=== PATIENT | male | born 1970 | race Hispanic/Latino ===

== ENCOUNTER 2022-06-29 10:51 | Emergency (ER) | END 2022-06-29 11:06 | LOC: ERS 10:51 | DX: Z02.89 Encounter for other administrative examinations (principal) | CPT/HCPCS: 99282 ==

== ENCOUNTER 2022-06-30 09:43 | Inpatient (IN) | payer OTHER, SELFPAY ==
[2022-06-30 11:56] LABS: #Lymphocytes 1.4 thou/uL (1.20-3.40); #Monocytes 0.7 thou/uL (0.11-0.59); #Neutrophils 7.4 thou/uL (1.40-6.50); %Basophils 0.2 % (0.0-1.0); %Eosinophils 0.5 % (0.0-10.0); %Lymphocytes 14.4 % (21.0-51.0); %Monocytes 7.2 % (0.0-10.0); %Neutrophils 77.9 % (42.0-75.0); Hemoglobin 16.3 g/dL (14.0-18.0); Mean Corpuscular HGB CONC 35.2 g/dL (32.0-36.0); Mean Corpuscular Hemoglobin 30.8 pg (27.0-31.0); Mean Corpuscular Volume 87.5 fl (78.0-98.0); Mean Platelet Volume 7.6 fL (7.4-10.4); Platelet Count 241 10x3/uL (130-400); RBC Distribution Width 11.9 % (11.5-14.5); Red Blood Cell (RBC) Count 5.29 mill/uL (4.70-6.10); White Blood Cell (WBC) Count 9.4 10x3/uL (4.8-10.8)
[2022-06-30 13:32] LABS: ALT (SGPT) 29 U/L (8-55); AST (SGOT) 25 U/L (5-34); Albumin 4.7 g/dL (3.5-5.0); Alcohol Less than 10 mg/dL (Less than 10); Alkaline Phosphatase 97 U/L (40-110); Anion Gap 16 mmol/L (10-20); BUN (Urea Nitrogen) 19 mg/dL (8.4-25.7); Bilirubin, Total 1.7 mg/dL (0.2-1.2); CK (CPK) 390 U/L (30-200); Calc. Creatinine Clearance 0 mL/min (70-130); Calcium 10.1 mg/dL (7.8-10.44); Carbon Dioxide 25 mmol/L (22-29); Chloride 102 mmol/L (98-107); Estimated GFR 95; Globulin 3.7 g/dL (2.4-3.5); Glucose 102 mg/dL (70-105); Protein, Total 8.4 g/dL (6.0-8.3); Salicylate Less than 8.0 mg/dL (15.0-30.0); Sodium 139 mmol/L (136-145)
[2022-06-30] MEDS ORDERED: hydrALAZINE 20 MG/ML VIAL SLOW IVP PRN ×2 (15:01→18:49)
[2022-06-30] MEDS ORDERED: Ondansetron PF 4 MG/2 ML Vial IVP PRN (15:01)
[2022-06-30] MEDS ORDERED: Ondansetron ODT 4 MG TAB PO PRN (15:01)
[2022-06-30 16:07] LABS: Troponin I 0.013 ng/mL (< 0.028)
[2022-06-30] MEDS ORDERED: hydrALAZINE 20 MG/ML VIAL ONE (16:20)
[2022-06-30 18:51] VITALS: BMI 32.8
[2022-06-30] MEDS: Labetalol HCl 100 MG/20 ML VIAL SLOW IVP PRN (18:56)
[2022-06-30 19:32] LABS: Troponin I Less than 0.010 ng/mL (< 0.028)
[2022-06-30] MEDS: Atorvastatin Calcium 40 MG TAB PO SCH (21:00)
[2022-06-30] MEDS: Famotidine 20 MG TAB PO SCH (21:00)
[2022-07-01 05:35] LABS: #Eosinphils 0.1 thou/uL (0.0-0.7); #Monocytes 0.6 thou/uL (0.11-0.59); #Neutrophils 7.2 thou/uL (1.40-6.50); %Basophils 0.1 % (0.0-1.0); %Eosinophils 0.6 % (0.0-10.0); %Lymphocytes 11.6 % (21.0-51.0); %Monocytes 6.7 % (0.0-10.0); Hemoglobin 15.8 g/dL (14.0-18.0); Mean Corpuscular HGB CONC 34.3 g/dL (32.0-36.0); Mean Corpuscular Hemoglobin 30.3 pg (27.0-31.0); Mean Corpuscular Volume 88.4 fl (78.0-98.0); Mean Platelet Volume 7.6 fL (7.4-10.4); Platelet Count 238 10x3/uL (130-400); RBC Distribution Width 11.8 % (11.5-14.5); Red Blood Cell (RBC) Count 5.22 mill/uL (4.70-6.10); White Blood Cell (WBC) Count 8.9 10x3/uL (4.8-10.8)
[2022-07-01 05:57] LABS: Anion Gap 15 mmol/L (10-20); BUN (Urea Nitrogen) 18 mg/dL (8.4-25.7); CK (CPK) 278 U/L (30-200); Calc. Creatinine Clearance 114 mL/min (70-130); Calcium 9.4 mg/dL (7.8-10.44); Carbon Dioxide 24 mmol/L (22-29); Cardiac Risk 4.7 (Less than 4.5); Chloride 105 mmol/L (98-107); Cholesterol 230 mg/dl (< 200 Desired); Estimated GFR 105; Glucose 110 mg/dL (70-105); HDL Cholesterol 49 mg/dL (>60 Neg Risk); LDL Cholesterol, Calculated 145 mg/dL; Potassium 3.7 mmol/L (3.5-5.1); Sodium 140 mmol/L (136-145); Triglycerides 178 mg/dL (Less than 150)
[2022-07-01] MEDS: Famotidine 20 MG TAB PO SCH ×2 (09:34→22:25)
[2022-07-01] MEDS: Aspirin 81 mg Enteric Coated Tablet PO SCH (09:35)
[2022-07-01] MEDS ORDERED: Iopamidol-370 76% 500 ML MDV (1 ML CHARGE) ONE (09:36)
[2022-07-01] MEDS: Acetaminophen 500 MG TAB PO PRN (12:49)
[2022-07-01] MEDS: Labetalol HCl 100 MG/20 ML VIAL SLOW IVP PRN ×2 (13:44→16:11)
[2022-07-01 14:10] LABS: Hemoglobin A1c 4.9 % (4.0-6.0)
[2022-07-01] MEDS ORDERED: NIFEdipine XL 30 MG TAB PO SCH (18:00)
[2022-07-01] MEDS: Atorvastatin Calcium 40 MG TAB PO SCH (22:25)
[2022-07-02] MEDS: NIFEdipine XL 30 MG TAB PO SCH (09:43)
[2022-07-02] MEDS: Famotidine 20 MG TAB PO SCH ×2 (09:44→21:52)
[2022-07-02] MEDS: Aspirin 81 mg Enteric Coated Tablet PO SCH (09:44)
[2022-07-02] MEDS: Atorvastatin Calcium 40 MG TAB PO SCH (21:52)
[2022-07-03] MEDS: NIFEdipine XL 30 MG TAB PO SCH (10:09)
[2022-07-03] MEDS: Famotidine 20 MG TAB PO SCH ×2 (10:10→20:50)
[2022-07-03] MEDS: Aspirin 81 mg Enteric Coated Tablet PO SCH (10:10)
[2022-07-03] MEDS: Atorvastatin Calcium 40 MG TAB PO SCH (20:50)
[2022-07-04] MEDS: Aspirin 81 mg Enteric Coated Tablet PO SCH (09:06)
[2022-07-04] MEDS: Famotidine 20 MG TAB PO SCH ×2 (09:08→21:22)
[2022-07-04] MEDS: NIFEdipine XL 30 MG TAB PO SCH (09:08)
[2022-07-04] MEDS: Atorvastatin Calcium 40 MG TAB PO SCH (21:22)
[2022-07-04] MEDS: Metoprolol Tartrate 25 MG TAB PO SCH (21:22)
[2022-07-05] MEDS: Labetalol HCl 100 MG/20 ML VIAL SLOW IVP PRN (00:01)
[2022-07-05] MEDS: Melatonin 3 MG TAB PO PRN (04:21)
[2022-07-05] MEDS: Acetaminophen 500 MG TAB PO PRN ×2 (04:21→21:06)
[2022-07-05] MEDS: Famotidine 20 MG TAB PO SCH ×2 (08:44→21:07)
[2022-07-05] MEDS: NIFEdipine XL 30 MG TAB PO SCH (08:44)
[2022-07-05] MEDS: Metoprolol Tartrate 25 MG TAB PO SCH ×2 (08:44→21:07)
[2022-07-05] MEDS: Aspirin 81 mg Enteric Coated Tablet PO SCH (08:45)
[2022-07-05] MEDS: Polyethylene Glycol 3350 17 GM Packet PO SCH (09:49)
[2022-07-05] MEDS: Atorvastatin Calcium 40 MG TAB PO SCH (21:07)
[2022-07-06 05:28] LABS: #Basophils 0.1 thou/uL (0.0-0.2); #Eosinphils 0.2 thou/uL (0.0-0.7); #Lymphocytes 2.1 thou/uL (1.20-3.40); #Monocytes 0.6 thou/uL (0.11-0.59); #Neutrophils 4.6 thou/uL (1.40-6.50); %Basophils 0.8 % (0.0-1.0); %Eosinophils 2.8 % (0.0-10.0); %Lymphocytes 27.4 % (21.0-51.0); %Monocytes 8.3 % (0.0-10.0); %Neutrophils 60.7 % (42.0-75.0); Hemoglobin 15.5 g/dL (14.0-18.0); Mean Corpuscular HGB CONC 33.7 g/dL (32.0-36.0); Mean Corpuscular Hemoglobin 29.4 pg (27.0-31.0); Mean Corpuscular Volume 87.3 fl (78.0-98.0); Mean Platelet Volume 7.7 fL (7.4-10.4); Platelet Count 257 10x3/uL (130-400); RBC Distribution Width 11.4 % (11.5-14.5); Red Blood Cell (RBC) Count 5.28 mill/uL (4.70-6.10); White Blood Cell (WBC) Count 7.6 10x3/uL (4.8-10.8)
[2022-07-06 05:31] LABS: Anion Gap 9 mmol/L (10-20); BUN (Urea Nitrogen) 20 mg/dL (8.4-25.7); Calc. Creatinine Clearance 127 mL/min (70-130); Calcium 9.3 mg/dL (7.8-10.44); Carbon Dioxide 28 mmol/L (22-29); Chloride 102 mmol/L (98-107); Estimated GFR 108; Glucose 99 mg/dL (70-105); Potassium 3.4 mmol/L (3.5-5.1); Sodium 136 mmol/L (136-145)
[2022-07-06] MEDS ORDERED: Electrolyte Replacement Protocol 1 EACH FS SCH (08:02)
[2022-07-06] MEDS ORDERED: Potassium Chloride 20 MEQ TAB PO SCH (08:15)
[2022-07-06] MEDS: Aspirin 81 mg Enteric Coated Tablet PO SCH (11:09)
[2022-07-06] MEDS: Senokot S 8.6-50 MG TAB PO PRN (11:09)
[2022-07-06] MEDS: Famotidine 20 MG TAB PO SCH ×2 (11:09→20:56)
[2022-07-06] MEDS: NIFEdipine XL 30 MG TAB PO SCH (11:10)
[2022-07-06] MEDS: Polyethylene Glycol 3350 17 GM Packet PO SCH (11:10)
[2022-07-06] MEDS: Metoprolol Tartrate 25 MG TAB PO SCH ×2 (11:10→20:56)
[2022-07-06] MEDS: Atorvastatin Calcium 40 MG TAB PO SCH (20:56)
[2022-07-06] MEDS: Acetaminophen 500 MG TAB PO PRN (21:06)
[2022-07-07 05:53] LABS: #Basophils 0.1 thou/uL (0.0-0.2); #Eosinphils 0.2 thou/uL (0.0-0.7); #Lymphocytes 2.2 thou/uL (1.20-3.40); #Monocytes 0.7 thou/uL (0.11-0.59); #Neutrophils 4.2 thou/uL (1.40-6.50); %Basophils 0.8 % (0.0-1.0); %Eosinophils 2.6 % (0.0-10.0); %Lymphocytes 29.7 % (21.0-51.0); %Monocytes 9.8 % (0.0-10.0); %Neutrophils 57.1 % (42.0-75.0); Hemoglobin 16.1 g/dL (14.0-18.0); Mean Corpuscular HGB CONC 33.5 g/dL (32.0-36.0); Mean Corpuscular Hemoglobin 29.4 pg (27.0-31.0); Mean Corpuscular Volume 87.8 fl (78.0-98.0); Mean Platelet Volume 7.5 fL (7.4-10.4); Platelet Count 263 10x3/uL (130-400); RBC Distribution Width 11.5 % (11.5-14.5); Red Blood Cell (RBC) Count 5.46 mill/uL (4.70-6.10); White Blood Cell (WBC) Count 7.4 10x3/uL (4.8-10.8)
[2022-07-07 06:16] LABS: Anion Gap 13 mmol/L (10-20); BUN (Urea Nitrogen) 17 mg/dL (8.4-25.7); Calc. Creatinine Clearance 128 mL/min (70-130); Calcium 9.3 mg/dL (7.8-10.44); Carbon Dioxide 26 mmol/L (22-29); Chloride 104 mmol/L (98-107); Estimated GFR 109; Glucose 87 mg/dL (70-105); Potassium 3.9 mmol/L (3.5-5.1); Sodium 139 mmol/L (136-145)
[2022-07-07] MEDS: Polyethylene Glycol 3350 17 GM Packet PO SCH (09:38)
[2022-07-07] MEDS: Metoprolol Tartrate 25 MG TAB PO SCH ×2 (09:38→21:53)
[2022-07-07] MEDS: Senokot S 8.6-50 MG TAB PO PRN (09:38)
[2022-07-07] MEDS: NIFEdipine XL 30 MG TAB PO SCH (09:38)
[2022-07-07] MEDS: Aspirin 81 mg Enteric Coated Tablet PO SCH (09:39)
[2022-07-07] MEDS: Famotidine 20 MG TAB PO SCH ×2 (09:39→20:39)
[2022-07-07] MEDS: Labetalol HCl 100 MG/20 ML VIAL SLOW IVP PRN (20:34)
[2022-07-07] MEDS: Atorvastatin Calcium 40 MG TAB PO SCH (20:39)
[2022-07-07] MEDS: Acetaminophen 500 MG TAB PO PRN (20:39)
[2022-07-08 06:11] LABS: #Eosinphils 0.2 thou/uL (0.0-0.7); #Monocytes 0.6 thou/uL (0.11-0.59); %Basophils 0.5 % (0.0-1.0); %Eosinophils 2.5 % (0.0-10.0); %Lymphocytes 29.2 % (21.0-51.0); %Monocytes 8.6 % (0.0-10.0); %Neutrophils 59.2 % (42.0-75.0); Hemoglobin 15.6 g/dL (14.0-18.0); Mean Corpuscular HGB CONC 32.7 g/dL (32.0-36.0); Mean Corpuscular Hemoglobin 28.8 pg (27.0-31.0); Mean Platelet Volume 7.5 fL (7.4-10.4); Platelet Count 298 10x3/uL (130-400); RBC Distribution Width 11.2 % (11.5-14.5); Red Blood Cell (RBC) Count 5.41 mill/uL (4.70-6.10); White Blood Cell (WBC) Count 6.7 10x3/uL (4.8-10.8)
[2022-07-08 06:32] LABS: Anion Gap 13 mmol/L (10-20); BUN (Urea Nitrogen) 15 mg/dL (8.4-25.7); Calc. Creatinine Clearance 118 mL/min (70-130); Calcium 9.6 mg/dL (7.8-10.44); Carbon Dioxide 27 mmol/L (22-29); Chloride 103 mmol/L (98-107); Estimated GFR 106; Glucose 92 mg/dL (70-105); Potassium 3.9 mmol/L (3.5-5.1); Sodium 139 mmol/L (136-145)
[2022-07-08] MEDS: NIFEdipine XL 30 MG TAB PO SCH (09:57)
[2022-07-08] MEDS: Famotidine 20 MG TAB PO SCH ×2 (09:58→21:20)
[2022-07-08] MEDS: Metoprolol Tartrate 25 MG TAB PO SCH ×2 (09:58→21:20)
[2022-07-08] MEDS: Polyethylene Glycol 3350 17 GM Packet PO SCH (09:58)
[2022-07-08] MEDS: Aspirin 81 mg Enteric Coated Tablet PO SCH (09:58)
[2022-07-08] MEDS ORDERED: Losartan 25 MG TAB PO SCH (15:00)
[2022-07-08] MEDS: Acetaminophen 500 MG TAB PO PRN (21:20)
[2022-07-08] MEDS: Melatonin 3 MG TAB PO PRN (21:20)
[2022-07-08] MEDS: Atorvastatin Calcium 40 MG TAB PO SCH (21:20)
[2022-07-09 06:26] LABS: #Eosinphils 0.2 thou/uL (0.0-0.7); #Lymphocytes 1.9 thou/uL (1.20-3.40); #Monocytes 0.6 thou/uL (0.11-0.59); #Neutrophils 3.5 thou/uL (1.40-6.50); %Basophils 0.5 % (0.0-1.0); %Eosinophils 3.1 % (0.0-10.0); %Monocytes 8.9 % (0.0-10.0); %Neutrophils 56.5 % (42.0-75.0); Mean Corpuscular HGB CONC 33.6 g/dL (32.0-36.0); Mean Corpuscular Hemoglobin 29.3 pg (27.0-31.0); Mean Corpuscular Volume 87.2 fl (78.0-98.0); Mean Platelet Volume 7.7 fL (7.4-10.4); Platelet Count 299 10x3/uL (130-400); RBC Distribution Width 11.1 % (11.5-14.5); Red Blood Cell (RBC) Count 5.46 mill/uL (4.70-6.10); White Blood Cell (WBC) Count 6.2 10x3/uL (4.8-10.8)
[2022-07-09 06:44] LABS: Anion Gap 14 mmol/L (10-20); BUN (Urea Nitrogen) 15 mg/dL (8.4-25.7); Calc. Creatinine Clearance 132 mL/min (70-130); Calcium 9.6 mg/dL (7.8-10.44); Carbon Dioxide 23 mmol/L (22-29); Chloride 104 mmol/L (98-107); Estimated GFR 110; Glucose 87 mg/dL (70-105); Potassium 3.8 mmol/L (3.5-5.1); Sodium 137 mmol/L (136-145)
[2022-07-09] MEDS: NIFEdipine XL 30 MG TAB PO SCH (10:51)
[2022-07-09] MEDS: Metoprolol Tartrate 25 MG TAB PO SCH ×2 (10:51→21:35)
[2022-07-09] MEDS: Aspirin 81 mg Enteric Coated Tablet PO SCH (10:51)
[2022-07-09] MEDS: Polyethylene Glycol 3350 17 GM Packet PO SCH (10:51)
[2022-07-09] MEDS: Famotidine 20 MG TAB PO SCH ×2 (10:52→21:35)
[2022-07-09] MEDS: Losartan 25 MG TAB PO SCH (10:52)
[2022-07-09] MEDS: Melatonin 3 MG TAB PO PRN (21:35)
[2022-07-09] MEDS: Atorvastatin Calcium 40 MG TAB PO SCH (21:35)
[2022-07-10 05:27] LABS: #Eosinphils 0.1 thou/uL (0.0-0.7); #Lymphocytes 1.8 thou/uL (1.20-3.40); #Monocytes 0.5 thou/uL (0.11-0.59); #Neutrophils 4.1 thou/uL (1.40-6.50); %Basophils 0.5 % (0.0-1.0); %Lymphocytes 27.5 % (21.0-51.0); %Monocytes 7.8 % (0.0-10.0); %Neutrophils 62.2 % (42.0-75.0); Hemoglobin 15.9 g/dL (14.0-18.0); Mean Corpuscular HGB CONC 32.3 g/dL (32.0-36.0); Mean Corpuscular Hemoglobin 28.2 pg (27.0-31.0); Mean Corpuscular Volume 87.4 fl (78.0-98.0); Mean Platelet Volume 7.8 fL (7.4-10.4); Platelet Count 325 10x3/uL (130-400); RBC Distribution Width 11.1 % (11.5-14.5); Red Blood Cell (RBC) Count 5.65 mill/uL (4.70-6.10); White Blood Cell (WBC) Count 6.6 10x3/uL (4.8-10.8)
[2022-07-10 05:47] LABS: Anion Gap 13 mmol/L (10-20); BUN (Urea Nitrogen) 18 mg/dL (8.4-25.7); Calc. Creatinine Clearance 111 mL/min (70-130); Calcium 9.5 mg/dL (7.8-10.44); Carbon Dioxide 27 mmol/L (22-29); Chloride 102 mmol/L (98-107); Estimated GFR 104; Glucose 88 mg/dL (70-105); Potassium 3.5 mmol/L (3.5-5.1); Sodium 138 mmol/L (136-145)
[2022-07-10] MEDS: NIFEdipine XL 30 MG TAB PO SCH (08:54)
[2022-07-10] MEDS: Losartan 25 MG TAB PO SCH (08:54)
[2022-07-10] MEDS: Famotidine 20 MG TAB PO SCH ×2 (08:54→20:44)
[2022-07-10] MEDS: Metoprolol Tartrate 25 MG TAB PO SCH ×2 (08:54→20:44)
[2022-07-10] MEDS: Aspirin 81 mg Enteric Coated Tablet PO SCH (08:54)
[2022-07-10] MEDS: Polyethylene Glycol 3350 17 GM Packet PO SCH (08:54)
[2022-07-10] MEDS: Atorvastatin Calcium 40 MG TAB PO SCH (20:44)
[2022-07-10] MEDS: Melatonin 3 MG TAB PO PRN (20:44)
[2022-07-10] MEDS: Acetaminophen 500 MG TAB PO PRN (20:46)
[2022-07-11] MEDS: Acetaminophen 500 MG TAB PO PRN (08:35)
[2022-07-11] MEDS: Metoprolol Tartrate 25 MG TAB PO SCH ×2 (08:36→21:37)
[2022-07-11] MEDS: Famotidine 20 MG TAB PO SCH ×2 (08:36→21:36)
[2022-07-11] MEDS: NIFEdipine XL 30 MG TAB PO SCH (08:36)
[2022-07-11] MEDS: Losartan 25 MG TAB PO SCH (08:36)
[2022-07-11] MEDS: Aspirin 81 mg Enteric Coated Tablet PO SCH (08:36)
[2022-07-11] MEDS: Polyethylene Glycol 3350 17 GM Packet PO SCH (08:37)
[2022-07-11] MEDS: Atorvastatin Calcium 40 MG TAB PO SCH (21:36)
[2022-07-12] MEDS: NIFEdipine XL 30 MG TAB PO SCH (09:43)
[2022-07-12] MEDS: Famotidine 20 MG TAB PO SCH ×2 (09:44→20:18)
[2022-07-12] MEDS: Polyethylene Glycol 3350 17 GM Packet PO SCH (09:44)
[2022-07-12] MEDS: Aspirin 81 mg Enteric Coated Tablet PO SCH (09:44)
[2022-07-12] MEDS: Metoprolol Tartrate 25 MG TAB PO SCH ×2 (09:44→20:18)
[2022-07-12] MEDS: Losartan 25 MG TAB PO SCH (09:44)
[2022-07-12] MEDS: Atorvastatin Calcium 40 MG TAB PO SCH (20:19)
[2022-07-13 08:04] LABS: #Eosinphils 0.1 thou/uL (0.0-0.7); #Lymphocytes 1.9 thou/uL (1.20-3.40); #Monocytes 0.6 thou/uL (0.11-0.59); #Neutrophils 5.3 thou/uL (1.40-6.50); %Basophils 0.4 % (0.0-1.0); %Eosinophils 1.8 % (0.0-10.0); %Lymphocytes 23.7 % (21.0-51.0); %Monocytes 7.5 % (0.0-10.0); %Neutrophils 66.7 % (42.0-75.0); Hemoglobin 15.4 g/dL (14.0-18.0); Mean Corpuscular HGB CONC 33.7 g/dL (32.0-36.0); Mean Corpuscular Hemoglobin 29.3 pg (27.0-31.0); Mean Corpuscular Volume 87.1 fl (78.0-98.0); Mean Platelet Volume 9.3 fL (7.4-10.4); Platelet Count 219 10x3/uL (130-400); RBC Distribution Width 11.5 % (11.5-14.5); Red Blood Cell (RBC) Count 5.23 mill/uL (4.70-6.10)
[2022-07-13] MEDS: NIFEdipine XL 30 MG TAB PO SCH (08:46)
[2022-07-13] MEDS: Polyethylene Glycol 3350 17 GM Packet PO SCH (08:46)
[2022-07-13] MEDS: Losartan 25 MG TAB PO SCH (08:47)
[2022-07-13] MEDS: Senokot S 8.6-50 MG TAB PO PRN (08:47)
[2022-07-13] MEDS: Metoprolol Tartrate 25 MG TAB PO SCH ×2 (08:47→20:17)
[2022-07-13] MEDS: Famotidine 20 MG TAB PO SCH (08:48)
[2022-07-13] MEDS: Aspirin 81 mg Enteric Coated Tablet PO SCH (08:48)
[2022-07-13 09:59] LABS: Chloride 105 mmol/L (98-107); Potassium 3.7 mmol/L (3.5-5.1); Sodium 136 mmol/L (136-145)
[2022-07-13 10:00] LABS: Calcium 9.8 mg/dL (7.8-10.44)
[2022-07-13 10:01] LABS: Glucose 97 mg/dL (70-105)
[2022-07-13 10:02] LABS: Anion Gap 17 mmol/L (10-20); Carbon Dioxide 18 mmol/L (22-29)
[2022-07-13 10:04] LABS: Calc. Creatinine Clearance 124 mL/min (70-130); Estimated GFR 108
[2022-07-13 10:05] LABS: BUN (Urea Nitrogen) 13 mg/dL (8.4-25.7)
[2022-07-13] MEDS: Atorvastatin Calcium 40 MG TAB PO SCH (20:17)
[2022-07-14] MEDS: NIFEdipine XL 30 MG TAB PO SCH (08:44)
[2022-07-14] MEDS: Losartan 25 MG TAB PO SCH (08:45)
[2022-07-14] MEDS: Aspirin 81 mg Enteric Coated Tablet PO SCH (08:45)
[2022-07-14] MEDS: Metoprolol Tartrate 25 MG TAB PO SCH ×2 (08:45→20:27)
[2022-07-14] MEDS: Polyethylene Glycol 3350 17 GM Packet PO SCH (08:46)
[2022-07-14] MEDS: Atorvastatin Calcium 40 MG TAB PO SCH (20:27)
[2022-07-15 05:56] LABS: #Eosinphils 0.2 thou/uL (0.0-0.7); #Lymphocytes 1.7 thou/uL (1.20-3.40); #Monocytes 0.8 thou/uL (0.11-0.59); #Neutrophils 6.9 thou/uL (1.40-6.50); %Basophils 0.4 % (0.0-1.0); %Lymphocytes 17.4 % (21.0-51.0); %Monocytes 7.9 % (0.0-10.0); %Neutrophils 72.3 % (42.0-75.0); Mean Corpuscular HGB CONC 34.9 g/dL (32.0-36.0); Mean Corpuscular Hemoglobin 30.4 pg (27.0-31.0); Mean Corpuscular Volume 87.2 fl (78.0-98.0); Mean Platelet Volume 7.7 fL (7.4-10.4); Platelet Count 298 10x3/uL (130-400); RBC Distribution Width 11.2 % (11.5-14.5); Red Blood Cell (RBC) Count 5.27 mill/uL (4.70-6.10); White Blood Cell (WBC) Count 9.5 10x3/uL (4.8-10.8)
[2022-07-15 06:22] LABS: ALT (SGPT) 49 U/L (8-55); AST (SGOT) 31 U/L (5-34); Albumin 3.8 g/dL (3.5-5.0); Alkaline Phosphatase 113 U/L (40-110); Anion Gap 16 mmol/L (10-20); BUN (Urea Nitrogen) 10 mg/dL (8.4-25.7); Calc. Creatinine Clearance 130 mL/min (70-130); Calcium 9.7 mg/dL (7.8-10.44); Carbon Dioxide 21 mmol/L (22-29); Chloride 106 mmol/L (98-107); Estimated GFR 109; Globulin 3.4 g/dL (2.4-3.5); Glucose 94 mg/dL (70-105); Potassium 3.8 mmol/L (3.5-5.1); Protein, Total 7.2 g/dL (6.0-8.3); Sodium 139 mmol/L (136-145)
[2022-07-15] MEDS: NIFEdipine XL 30 MG TAB PO SCH (08:56)
[2022-07-15] MEDS: Polyethylene Glycol 3350 17 GM Packet PO SCH (08:56)
[2022-07-15] MEDS: Aspirin 81 mg Enteric Coated Tablet PO SCH (08:57)
[2022-07-15] MEDS: Metoprolol Tartrate 25 MG TAB PO SCH ×2 (08:57→21:01)
[2022-07-15] MEDS: Losartan 25 MG TAB PO SCH (08:57)
[2022-07-15] MEDS: Atorvastatin Calcium 40 MG TAB PO SCH (21:01)
[2022-07-16 05:20] LABS: #Basophils 0.1 thou/uL (0.0-0.2); #Eosinphils 0.2 thou/uL (0.0-0.7); #Monocytes 0.5 thou/uL (0.11-0.59); #Neutrophils 4.8 thou/uL (1.40-6.50); %Basophils 0.8 % (0.0-1.0); %Lymphocytes 26.3 % (21.0-51.0); %Monocytes 6.9 % (0.0-10.0); %Neutrophils 62.9 % (42.0-75.0); Mean Corpuscular HGB CONC 33.8 g/dL (32.0-36.0); Mean Corpuscular Hemoglobin 29.4 pg (27.0-31.0); Mean Platelet Volume 7.5 fL (7.4-10.4); Platelet Count 308 10x3/uL (130-400); RBC Distribution Width 11.1 % (11.5-14.5); White Blood Cell (WBC) Count 7.6 10x3/uL (4.8-10.8)
[2022-07-16 05:46] LABS: ALT (SGPT) 57 U/L (8-55); AST (SGOT) 40 U/L (5-34); Albumin 3.8 g/dL (3.5-5.0); Alkaline Phosphatase 112 U/L (40-110); Anion Gap 15 mmol/L (10-20); BUN (Urea Nitrogen) 11 mg/dL (8.4-25.7); Bilirubin, Total 0.7 mg/dL (0.2-1.2); Calc. Creatinine Clearance 125 mL/min (70-130); Calcium 9.3 mg/dL (7.8-10.44); Carbon Dioxide 20 mmol/L (22-29); Chloride 107 mmol/L (98-107); Estimated GFR 108; Globulin 3.3 g/dL (2.4-3.5); Glucose 97 mg/dL (70-105); Potassium 3.9 mmol/L (3.5-5.1); Protein, Total 7.1 g/dL (6.0-8.3); Sodium 138 mmol/L (136-145)
[2022-07-16] MEDS: NIFEdipine XL 30 MG TAB PO SCH (09:31)
[2022-07-16] MEDS: Polyethylene Glycol 3350 17 GM Packet PO SCH (09:31)
[2022-07-16] MEDS: Aspirin 81 mg Enteric Coated Tablet PO SCH (09:31)
[2022-07-16] MEDS: Metoprolol Tartrate 25 MG TAB PO SCH ×2 (09:32→20:33)
[2022-07-16] MEDS: Losartan 25 MG TAB PO SCH (09:32)
[2022-07-16] MEDS: Atorvastatin Calcium 40 MG TAB PO SCH (20:33)
[2022-07-17 05:54] LABS: #Eosinphils 0.2 thou/uL (0.0-0.7); #Lymphocytes 1.9 thou/uL (1.20-3.40); #Monocytes 0.5 thou/uL (0.11-0.59); #Neutrophils 4.2 thou/uL (1.40-6.50); %Basophils 0.4 % (0.0-1.0); %Eosinophils 3.1 % (0.0-10.0); %Lymphocytes 28.3 % (21.0-51.0); %Monocytes 7.2 % (0.0-10.0); %Neutrophils 61.1 % (42.0-75.0); Hemoglobin 15.6 g/dL (14.0-18.0); Mean Corpuscular Hemoglobin 29.7 pg (27.0-31.0); Mean Corpuscular Volume 87.3 fl (78.0-98.0); Mean Platelet Volume 7.7 fL (7.4-10.4); Platelet Count 306 10x3/uL (130-400); RBC Distribution Width 11.1 % (11.5-14.5); Red Blood Cell (RBC) Count 5.28 mill/uL (4.70-6.10); White Blood Cell (WBC) Count 6.9 10x3/uL (4.8-10.8)
[2022-07-17 06:21] LABS: ALT (SGPT) 62 U/L (8-55); AST (SGOT) 37 U/L (5-34); Albumin 3.8 g/dL (3.5-5.0); Alkaline Phosphatase 117 U/L (40-110); Anion Gap 15 mmol/L (10-20); BUN (Urea Nitrogen) 11 mg/dL (8.4-25.7); Bilirubin, Total 0.7 mg/dL (0.2-1.2); Calc. Creatinine Clearance 134 mL/min (70-130); Calcium 9.6 mg/dL (7.8-10.44); Carbon Dioxide 22 mmol/L (22-29); Chloride 106 mmol/L (98-107); Estimated GFR 110; Globulin 3.3 g/dL (2.4-3.5); Glucose 90 mg/dL (70-105); Potassium 3.7 mmol/L (3.5-5.1); Protein, Total 7.1 g/dL (6.0-8.3); Sodium 139 mmol/L (136-145)
[2022-07-17] MEDS: Metoprolol Tartrate 25 MG TAB PO SCH ×2 (10:01→20:53)
[2022-07-17] MEDS: Losartan 25 MG TAB PO SCH (10:08)
[2022-07-17] MEDS: NIFEdipine XL 30 MG TAB PO SCH (10:08)
[2022-07-17] MEDS: Aspirin 81 mg Enteric Coated Tablet PO SCH (10:09)
[2022-07-17] MEDS: Polyethylene Glycol 3350 17 GM Packet PO SCH (17:41)
[2022-07-17] MEDS: Atorvastatin Calcium 40 MG TAB PO SCH (20:53)
[2022-07-18 05:26] LABS: #Eosinphils 0.2 thou/uL (0.0-0.7); #Lymphocytes 1.9 thou/uL (1.20-3.40); #Monocytes 0.5 thou/uL (0.11-0.59); #Neutrophils 3.7 thou/uL (1.40-6.50); %Basophils 0.6 % (0.0-1.0); %Eosinophils 2.6 % (0.0-10.0); %Lymphocytes 29.9 % (21.0-51.0); %Monocytes 7.2 % (0.0-10.0); %Neutrophils 59.7 % (42.0-75.0); Hemoglobin 15.2 g/dL (14.0-18.0); Mean Corpuscular HGB CONC 33.1 g/dL (32.0-36.0); Mean Corpuscular Hemoglobin 28.7 pg (27.0-31.0); Mean Corpuscular Volume 86.8 fl (78.0-98.0); Mean Platelet Volume 7.6 fL (7.4-10.4); Platelet Count 318 10x3/uL (130-400); RBC Distribution Width 11.1 % (11.5-14.5); Red Blood Cell (RBC) Count 5.28 mill/uL (4.70-6.10); White Blood Cell (WBC) Count 6.2 10x3/uL (4.8-10.8)
[2022-07-18 05:42] LABS: ALT (SGPT) 59 U/L (8-55); AST (SGOT) 35 U/L (5-34); Albumin 3.7 g/dL (3.5-5.0); Alkaline Phosphatase 114 U/L (40-110); Anion Gap 15 mmol/L (10-20); BUN (Urea Nitrogen) 12 mg/dL (8.4-25.7); Bilirubin, Total 0.6 mg/dL (0.2-1.2); Calc. Creatinine Clearance 119 mL/min (70-130); Calcium 9.6 mg/dL (7.8-10.44); Carbon Dioxide 21 mmol/L (22-29); Chloride 107 mmol/L (98-107); Estimated GFR 106; Globulin 3.3 g/dL (2.4-3.5); Glucose 92 mg/dL (70-105); Potassium 3.8 mmol/L (3.5-5.1); Sodium 139 mmol/L (136-145)
[2022-07-18] MEDS: NIFEdipine XL 30 MG TAB PO SCH (10:22)
[2022-07-18] MEDS: Polyethylene Glycol 3350 17 GM Packet PO SCH (10:22)
[2022-07-18] MEDS: Losartan 25 MG TAB PO SCH (10:24)
[2022-07-18] MEDS: Aspirin 81 mg Enteric Coated Tablet PO SCH (10:24)
[2022-07-18] MEDS: Metoprolol Tartrate 25 MG TAB PO SCH (10:24)
[2022-07-18 15:49] VITALS: BP 129/87; TEMP 99.3
== END 2022-07-18 19:10 | disposition home or self-care (01) | DRG 64 ==
LOC: ERS 09:43 → ERHOLD 13:34 → EEVIPCON 13:34 → NEURO 18:37
PROVIDERS: ADMIT Internal Medicine; ATTEND Internal Medicine
DX: I63.511 Cerebral infarction due to unspecified occlusion or stenosis of right middle cerebral artery (principal); G93.6 Cerebral edema; I61.1 Nontraumatic intracerebral hemorrhage in hemisphere, cortical; M62.82 Rhabdomyolysis; G81.94 Hemiplegia, unspecified affecting left nondominant side; R29.710 NIHSS score 10; R47.01 Aphasia; E11.9 Type 2 diabetes mellitus without complications; I10 Essential (primary) hypertension; H53.8 Other visual disturbances; R47.81 Slurred speech; R47.1 Dysarthria and anarthria; R29.810 Facial weakness; I08.3 Combined rheumatic disorders of mitral, aortic and tricuspid valves; R74.01 Elevation of levels of liver transaminase levels; S01.81XA Laceration without foreign body of other part of head, initial encounter; W06.XXXA Fall from bed, initial encounter; Y92.230 Patient room in hospital as the place of occurrence of the external cause; Z79.899 Other long term (current) drug therapy
CPT/HCPCS: 36415; 36416; 70450; 70496; 70498; 70551; 71045; 80048; 80053; 80061; 80307; 82140; 82550; 83036; 84443; 84484; 85025; 93005; 93306; 93880; 95712; 95819; 95957; 96374; J0360; J1650; Q9967